=== PATIENT | female | born 1980 | race African-American/Black ===

== ENCOUNTER 2019-03-06 11:58 | Emergency (ER) | payer BC ==
[2019-03-06 12:36] LABS: #Basophils 0.1 thou/uL (0.0-0.2); #Eosinphils 0.2 thou/uL (0.0-0.7); #Lymphocytes 1.3 thou/uL (1.20-3.40); #Monocytes 0.3 thou/uL (0.11-0.59); #Neutrophils 2.5 thou/uL (1.40-6.50); %Basophils 1.3 % (0.0-1.0); %Eosinophils 4.6 % (0.0-10.0); %Lymphocytes 30.1 % (21.0-51.0); %Monocytes 6.4 % (0.0-10.0); %Neutrophils 57.5 % (42.0-75.0); Hemoglobin 10.3 g/dL (12.0-16.0); Mean Corpuscular HGB CONC 31.5 g/dL (32.0-36.0); Mean Corpuscular Hemoglobin 23.1 pg (27.0-31.0); Mean Corpuscular Volume 73.5 fL (78.0-98.0); Mean Platelet Volume 8.3 fL (7.4-10.4); Platelet Count 323 thou/uL (130-400); Red Blood Cell (RBC) Count 4.44 mill/uL (4.20-5.40); White Blood Cell (WBC) Count 4.4 thou/uL (4.8-10.8)
[2019-03-06 12:37] LABS: Bilirubin Negative (Negative); Blood, Urine Negative (Negative); Clarity Clear (Clear); Glucose, Urine (Dipstick) Normal (Negative); Leukocyte Negative Leu/uL (Negative); Nitrite Negative (Negative); Protein, Urine (Dipstick) 20 mg/dL (Neg-Trace); Urobilinogen Normal mg/dL (Less than 2)
[2019-03-06 12:49] LABS: BHCG - Serum Negative (NEGATIVE); Pregs Control Background? CLEAR/WHITE (CLR/WHITE); Pregs Control Bar Appear? YES (CONTROL BAR)
[2019-03-06] MEDS ORDERED: Morphine 4 MG/ML VIAL ONE (12:55)
[2019-03-06] MEDS ORDERED: Ondansetron PF 4 MG/2 ML Vial ONE (12:55)
[2019-03-06 12:56] LABS: ALT (SGPT) 15 U/L (8-55); AST (SGOT) 14 U/L (5-34); Albumin 4.9 g/dL (3.5-5.0); Alkaline Phosphatase 56 U/L (40-110); Anion Gap 14 mmol/L (10-20); BUN (Urea Nitrogen) 10 mg/dL (7.0-18.7); Bilirubin, Total 0.2 mg/dL (0.2-1.2); Calc. Creatinine Clearance 0 mL/min (70-130); Calcium 9.6 mg/dL (7.8-10.44); Carbon Dioxide 24 mmol/L (22-29); Chloride 104 mmol/L (98-107); Estimated GFR-MDRD 86; Globulin 2.9 g/dL (2.4-3.5); Glucose 90 mg/dL (70-105); Lipase 7 U/L (8-78); Potassium 3.8 mmol/L (3.5-5.1); Protein, Total 7.8 g/dL (6.0-8.3); Sodium 138 mmol/L (136-145)
[2019-03-06 13:09] LABS: Anisocytosis SLIGHT = 6-15 cells (100X) (0-5/hpf); Hypochromia SLIGHT = 6-15 cells (100X) (0-5/hpf); MDiff Complete? YES; Microcytosis SLIGHT = 6-15 cells (100X) (0-5/hpf); Ovalocytes SLIGHT = 2-5 cells (100X) (0-1/hpf); Platelet Morphology Comment Appears Adequate; Polychromasia SLIGHT = 2-3 cells (100X) (0-2/hpf); Target Cells SLIGHT = 2-5 cells (100X) (0-1/hpf); Tear Drops SLIGHT = 2-5 cells (100X) (0-1/hpf)
--- NOTE | 2019-03-06 15:04 | CT ---
CT ABDOMEN AND PELVIS: HISTORY: Right lower quadrant pain. COMPARISON: None.. Procedure: Multiple contiguous axial images were obtained and a CT of the abdomen and pelvis with IV contrast. C oronal reformats were performed. FINDINGS: Lower Chest: within normal limits. Vessels: Normal caliber aorta. Heart: Unremarkable heart size. No pericardial effusion. Abdomen: Portal vein:Patent. Gallbladder: No calcified gallstones. Normal caliber wall. Liver: within normal limits. Pancreas: within normal limits. Spleen: within normal limits. Adrenals: within normal limits. Kidneys: Symmetric enhancement. No obstructive uropathy. Peritoneum: No ascites or free air, no fluid collection. Bowel: Limited evaluation due to the lack of oral contrast administration. No evidence of bowel obstr uction. Ileocecal junction is unremarkable. Normal caliber appendix. Scattered fecal material in a nondistended, nondilated colon. Mesentery and Retroperitoneum: No enlarged mesenteric or retroperitoneal lymph nodes. Abdominal Wall: within normal limits. Pelvis: Reproductive Organs: Normal appearing uterus is not appreciated. Rather, there does appear to be a mi xed attenuation predominantly solid mass-type irregularity involving the uterus. Additional probably cystic lesions occupy the expected region of the lower uterine segment. The more solid compo nent along the cephalad portion of the uterus measures 8.3 x 8.2 x 8.6 cm. The more multifocal cystic component measures 14.8 x 10.1 cm. Additionally, there are hypodensities in the left and right adnexa. Incomplete and limited evaluation. Pelvic MRI and [facility] consultation is recommended. These findings cannot be better interrogated with ultrasound. Pelvis: No significant lymphadenopathy, free air or free fluid. Bladder: within normal limits. Bones: within normal limits. IMPRESSION: 1. Normal caliber appendix. 2. Extensive abnormal attenuation with solid and cystic components occupying the entire uterus as wel l as the left or right adnexa. Better interrogation with pelvic MRI is recommended. Pelvic ultrasound would not allow for additional characterization. Additionally, [facility]IP[facility] consultation is recomme nded. Transcribed Date/Time: 03/06/2019 3:13 PM
[2019-03-06] MEDS ORDERED: diphenhydrAMINE 50 MG/ML VIAL ONE (15:09)
[2019-03-06] MEDS ORDERED: Iopamidol-370 76% 500 ML 1 ML ONE (16:32)
--- NOTE | 2019-03-06 17:24 | MRI ---
MRI PELVIS WITH AND WITHOUT IV CONTRAST: 03/06/19 HISTORY: Pelvic mass, abnormal CT abdomen and pelvis yesterday. FINDINGS: The large abdominopelvic mass is consistent with an enlarged uterus and multiple heterogeneously enha ncing masses indicative of fibroid uterus. A corpus luteal cyst is seen in the right ovary. The visua lized portions of the solid organs are normal. No lymphadenopathy seen. There is a small amount of f ree fluid in the abdomen and pelvis. IMPRESSION: Large abdominopelvic mass likely due to fibroid uterus. Gynecologic consultation is recommended. POS: ALONDRA
== END 2019-03-06 17:50 | disposition home or self-care (01) ==
LOC: ERS 11:58
DX: D25.9 Leiomyoma of uterus, unspecified (principal); F17.210 Nicotine dependence, cigarettes, uncomplicated
CPT/HCPCS: 36415; 72197; 74177; 80053; 81003; 83690; 84703; 85025; 96361; 96374; 96375; J1200; J2270; J2405; Q9967